=== PATIENT | male | born 1970 | race Caucasian/White ===

== ENCOUNTER 2016-07-30 00:26 | Inpatient (IN) | payer OTHER ==
[~2016-07-30] VITALS: Ht 185.4 cm; Wt 153.5 kg
[2016-07-30] VITALS (12 sets, daily range): BP systolic 125–188; BP diastolic 62–101; PULSE 73–102; RESP 16–22; TEMP 96.2–98.1; O2SAT 95–100
[~2016-07-30 00:26] MED LIST: LISI-363 PO
[2016-07-30] MEDS ORDERED: LISI-515 PO (01:23)
[2016-07-30] MEDS ORDERED: SODIUM CHLOR 0.9% 1000 ML INJ 1,000 ML IV SCH (01:48)
[2016-07-30] MEDS ORDERED: HYDROmorphone HCL PF 1 MG/ML VIAL IV PUSH ONE ×3 (02:00→07:15)
[2016-07-30] MEDS ORDERED: SODIUM CHLORIDE 0.9% FLUSH 5 ML FLUSH IVF PRN ×2 (02:00→04:15)
[2016-07-30] MEDS ORDERED: ONDANSETRON HCL 4 MG/2 ML VIAL IVP ONE (02:00)
[2016-07-30 02:06] LABS: BLOOD, URINE TRACE (NEG); GLUCOSE,URINE NEG (NEG); KETONE, URINE NEG (NEG); NITRITE,URINE NEG (NEG); PH, URINE 5.5 (5.0-8.5)
[2016-07-30 02:06] LABS: AUTOMATED NEUTROPHIL # 5.4 TH/MM3 (1.8-7.7); BASOPHIL # 0.1 TH/MM3 (0-0.2); BASOPHIL % 0.9 % (0.0-2.0); EOSINOPHIL % 0.4 % (0.0-4.0); HEMATOCRIT 38.7 % (39.0-51.0); HEMO FLAGS DIFF FINAL; LYMPH % 26.4 % (9.0-44.0); LYMPHOCYTE # 2.1 TH/MM3 (1.0-4.8); MEAN CELL VOLUME 99.6 FL (80.0-100.0); MEAN CORPUSCULAR HEMOGLOBIN 34.8 PG (27.0-34.0); MEAN CORPUSCULAR HGB CONC 34.9 % (32.0-36.0); MONO % 4.8 % (0.0-8.0); NEUT % 67.5 % (16.0-70.0); PLATELET COUNT 143 TH/MM3 (150-450); RED BLOOD COUNT 3.88 MIL/MM3 (4.50-5.90); RED CELL DISTRIBUTION WIDTH 13.2 % (11.6-17.2)
[2016-07-30 02:17] LABS: URINE COLOR YELLOW (YELLW/STRAW)
[2016-07-30 02:18] LABS: MUCUS URINE OCC /lpf (OCC)
[2016-07-30 02:19] LABS: RBC, URINE 0-3 /hpf (0-3); SQUAMOUS EPITHELIAL CELL URINE 0-5 /hpf (0-5)
[2016-07-30 02:19] LABS: CHLORIDE 106 MEQ/L (98-107); POTASSIUM 4.7 MEQ/L (3.5-5.1); SODIUM (NA) 140 MEQ/L (136-145)
[2016-07-30 02:20] LABS: COMMENT (UR) CULT NOT INDICATED; CULTURE IF INDICATED CULT NOT INDICATED
[2016-07-30 02:23] LABS: ANION GAP 14 MEQ/L (5-15); BICARBONATE 19.7 MEQ/L (21.0-32.0); BLOOD UREA NITROGEN 23 MG/DL (7-18)
[2016-07-30 02:26] LABS: ALT (GPT) 55 U/L (12-78); AST (GOT) 55 U/L (15-37); GLOMERULAR FILTRATION RATE 34 ML/MIN (>89)
[2016-07-30 02:27] LABS: TOTAL BILIRUBIN ADULT 0.5 MG/DL (0.2-1.0)
[2016-07-30 02:29] LABS: ALKALINE PHOSPHATASE 86 U/L (45-117)
--- NOTE | 2016-07-30 02:31 | RADHPO ---
EXAM DATE/TIME: 07/30/2016 02:18 [facility] COMPARISON: CHEST SINGLE AP, January 14, 2016, 11:48. INDICATIONS : Chest and abdominal pain. MEDICAL HISTORY : None. SURGICAL HISTORY : None. ENCOUNTER: Initial ACUITY: 1 day PAIN SCORE: 10/10 LOCATION: Right lower chest FINDINGS: A single view of the chest demonstrates the lungs to be symmetrically aerated without evidence of mas s, infiltrate or effusion. The cardiomediastinal contours are unremarkable. Osseous structures are intact.CONCLUSION: No acute disease. Bakari Manzano MD on July 30, 2016 at 2:29 Board Certified Radiologist. This report was verified electronically.
[2016-07-30] MEDS ORDERED: ONDANSETRON HCL 4 MG/2 ML VIAL IV PUSH ONE (03:45)
--- NOTE | 2016-07-30 03:52 | RADHPO ---
EXAM DATE/TIME: 07/30/2016 03:06 [facility] COMPARISON: CT ABDOMEN & PELVIS W/O CONTRAST, August 25, 2014, 20:28. INDICATIONS : Right upper quadrant pain. ORAL CONTRAST: No oral contrast ingested. RADIATION DOSE: 22.40 CTDIvol (mGy) MEDICAL HISTORY : Pancreatitis. Hypertension. Born with one kidney SURGICAL HISTORY : Appendectomy. ENCOUNTER: Initial ACUITY: 1 day PAIN SCALE: 7/10 LOCATION: Right upper quadrant TECHNIQUE: Volumetric scanning of the abdomen and pelvis was performed. Using automated exposure control and ad justment of the mA and/or kV according to patient size, radiation dose was kept as low as reasonably achievable to obtain optimal diagnostic quality images. FINDINGS: LOWER LUNGS: The visualized lower lungs are clear. LIVER: Homogeneous density without lesion. There is no dilation of the biliary tree. No calcified gallston es. SPLEEN: Normal size without lesion. PANCREAS: Within normal limits. KIDNEYS: There is absence of the left kidney. The right kidney appears normal. ADRENAL GLANDS: Within normal limits. VASCULAR: There is no aortic aneurysm. BOWEL/MESENTERY: The stomach, small bowel, and colon demonstrate no acute abnormality. There is no free intraperitone al air or fluid. ABDOMINAL WALL: Within normal limits. RETROPERITONEUM: There is no lymphadenopathy. BLADDER: No wall thickening or mass. REPRODUCTIVE: Within normal limits. INGUINAL: There is no lymphadenopathy or hernia. MUSCULOSKELETAL: Within normal limits for patient age. CONCLUSION: No acute disease. Bakari Manzano MD on July 30, 2016 at 3:49 Board Certified Radiologist. This report was verified electronically.
[2016-07-30] MEDS ORDERED: SODIUM CHLOR 0.9% 1000 ML INJ 1,000 ML IV ONE (04:15)
[2016-07-30] MEDS ORDERED: MORPHINE SULFATE 4 MG/ML INJ IV PUSH ONE (04:15)
[2016-07-30] MEDS: SODIUM CHLOR 0.9% 1000 ML INJ 1,000 ML IV SCH ×2 (06:15→11:54)
[2016-07-30] MEDS ORDERED: SODIUM CHLORIDE 0.9% FLUSH 5 ML FLUSH IV PRN (06:15)
[2016-07-30] MEDS ORDERED: ONDANSETRON HCL 4 MG/2 ML VIAL IV PUSH PRN (06:15)
--- NOTE | 2016-07-30 06:17 | PD ---
HPI Chief Complaint: Abdominal Pain Time Seen by Provider: 01:48 Travel History International Travel<30 days: No Contact w/Intl Traveler<30days: No Traveled to known affect area: No History of Present Illness HPI 46-year-old male presents to the emergency department for one week of progressively worsening upper abdominal pain. Prior history of pancreatitis admits to alcohol use denies history of gallstones or biliary colic. No history of gastritis or peptic ulcer disease. Patient is currently taking no medications. Patient states pain does not remind him of his prior episodes of pancreatitis. Patient rates his pain 7/10 in intensity. Eating seems to exacerbate symptoms nothing seems to provide any relief. No hematemesis no coffee-ground emesis no melena no hematochezia. No chest pain no shortness of breath. No dysuria frequency or urgency or flank pain. No injury or fall. PFSH Past Medical History Narrative Medical Arthritis pancreatitis one kidney hypertension hypertriglyceridemia alcoholism nursing notes reviewed Hx Anticoagulant Therapy: No Arthritis: Yes (LEFT FOOT) Asthma: No Autoimmune Disease: No Blood Disorders: No Anxiety: No Depression: No Heart Rhythm Problems: No Cancer: No Cardiovascular Problems: Yes High Cholesterol: No Chemotherapy: No Chest Pain: No Congestive Heart Failure: No COPD: No Cerebrovascular Accident: No Diabetes: No Diminished Hearing: No Endocrine: Yes Gastrointestinal Disorders: Yes GERD: No Genitourinary: Yes ("BORN WITH ONE KIDNEY, HAVE FSGS") Hiatal Hernia: No Hypertension: Yes Immune Disorder: No Implanted Vascular Access Dvce: No Kidney Stones: No Musculoskeletal: Yes Neurologic: Yes (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) Psychiatric: No Reproductive: No Respiratory: No Immunizations Current: Yes Migraines: No Pancreatitis: Yes Radiation Therapy: No Renal Failure: Yes (CKD, has one RIGHT SIDED kidney "FSGS") Seizures: No Sickle Cell Disease: No Sleep Apnea: No Thyroid Disease: No Ulcer: No PNEUMOCCOCAL Vaccine (Year): 2 Past Surgical History Abdominal Surgery: Yes AICD: No Appendectomy: Yes Arteriovenous Shunt: No Body Medical Devices: PIN IN HIP Cardiac Surgery: No Ear Surgery: No Endocrine Surgery: No Eye Surgery: No Genitourinary Surgery: No Gynecologic Surgery: No Hysterectomy: No Insulin Pump: No Joint Replacement: Yes Oral Surgery: Yes ("SALIVA GLAND REMOVED") Pacemaker: No Thoracic Surgery: No Other Surgery: Yes Social History Alcohol Use: Yes (750 ML VODKA DAILY) Tobacco Use: Yes (QUIT: 04/2015) Substance Use: No Allergies-Medications (Allergen,Severity, Reaction): Coded Allergies: No Known Allergies (Verified , 07/30/16) Reported Meds & Prescriptions Reported Meds & Active Scripts Active Reported Lisinopril 20 Mg Tab 20 Mg PO DAILY Review of Systems Except as stated in HPI: all other systems reviewed are Neg General / Constitutional: No: Fever, Chills HENT: No: Congestion Cardiovascular: No: Chest Pain or Discomfort Respiratory: No: Shortness of Breath Gastrointestinal: Positive: Nausea, Abdominal Pain Genitourinary: No: Flank Pain Musculoskeletal: No: Pain Skin: No Rash Neurologic: No: Weakness Psychiatric: Positive: Anxiety Hematologic/Lymphatic: No: Lymph Node Enlargement Physical Exam Narrative GENERAL: SKIN: Warm a well-developed well-developed well-nourished obese male in no acute distress no respiratory distress nd dry. HEAD: Normocephalic. EYES: No scleral icterus. No injection or drainage. NECK: Supple, trachea midline. No JVD or lymphadenopathy. CARDIOVASCULAR: Regular rate and rhythm without murmurs, gallops, or rubs. RESPIRATORY: Breath sounds equal bilaterally. No accessory muscle use. GASTROINTESTINAL: Abdomen soft, reproducible right upper quadrant and periumbilical tenderness to direct palpation without guarding or rebound, nondistended. MUSCULOSKELETAL: No cyanosis, or edema. BACK: Nontender without obvious deformity. No CVA tenderness. Data Data Last Documented VS Vital Signs Date Time Temp Pulse Resp B/P Pulse Ox O2 Delivery O2 Flow Rate FiO2 07/30/16 04:00 86 18 129/62 95 Room Air 07/30/16 00:51 98.1 Orders Complete Blood Count With Diff (07/30/16 01:48) Comprehensive Metabolic Panel (07/30/16 01:48) Lipase (07/30/16 01:48) Urinalysis - C+S If Indicated (07/30/16 01:48) Iv Access Insert/Monitor (07/30/16 01:48) Ecg Monitoring (07/30/16 01:48) Oximetry (07/30/16 01:48) Ondansetron Inj (Zofran Inj) (07/30/16 02:00) Sodium Chlor 0.9% 1000 Ml Inj (Ns 1000 M (07/30/16 01:48) Chest, Single Ap (07/30/16 01:48) Hydromorphone Pf Inj (Dilaudid Pf Inj) (07/30/16 02:00) Ct Abd/Pel W/O Iv Contrast (07/30/16 01:48) Hydromorphone Pf Inj (Dilaudid Pf Inj) (07/30/16 03:45) Ondansetron Inj (Zofran Inj) (07/30/16 03:45) Sodium Chlor 0.9% 1000 Ml Inj (Ns 1000 M (07/30/16 04:15) Morphine Inj (Morphine Inj) (07/30/16 04:15) Admit Order (Ed Use Only) (07/30/16 ) ^ Saline Lock (07/30/16 04:14) Resp Oxygen Darren C Titrat 1-4 L (07/30/16 ) ^ Notify Dr: Other (07/30/16 04:14) Sodium Chloride 0.9% Flush (Ns Flush) (07/30/16 09:00) Sodium Chloride 0.9% Flush (Ns Flush) (07/30/16 04:15) Alcohol (Ethanol) (07/30/16 01:40) Labs Laboratory Tests Test 07/30/16 07/30/16 01:35 01:40 Urine Color YELLOW Urine Turbidity CLEAR Urine pH 5.5 Urine Specific [place] 1.016 Urine Protein 100 mg/dL Urine Glucose (UA) NEG mg/dL Urine Ketones NEG mg/dL Urine Occult Blood TRACE Urine Nitrite NEG Urine Bilirubin NEG Urine Leukocyte Esterase NEG Urine RBC 0-3 /hpf Urine Squamous Epithelial 0-5 /hpf Cells Urine Hyaline Casts 3-5 /lpf Urine Fine Granular Casts 0-2 /lpf Urine Mucus OCC /lpf Microscopic Urinalysis Comment CULT NOT INDICATED White Blood Count 8.0 TH/MM3 Red Blood Count 3.88 MIL/MM3 Hemoglobin 13.5 GM/DL Hematocrit 38.7 % Mean Corpuscular Volume 99.6 FL Mean Corpuscular Hemoglobin 34.8 PG Mean Corpuscular Hemoglobin 34.9 % Concent Red Cell Distribution Width 13.2 % Platelet Count 143 TH/MM3 Mean Platelet Volume 8.0 FL Neutrophils (%) (Auto) 67.5 % Lymphocytes (%) (Auto) 26.4 % Monocytes (%) (Auto) 4.8 % Eosinophils (%) (Auto) 0.4 % Basophils (%) (Auto) 0.9 % Neutrophils # (Auto) 5.4 TH/MM3 Lymphocytes # (Auto) 2.1 TH/MM3 Monocytes # (Auto) 0.4 TH/MM3 Eosinophils # (Auto) 0.0 TH/MM3 Basophils # (Auto) 0.1 TH/MM3 CBC Comment DIFF FINAL Differential Comment Sodium Level 140 MEQ/L Potassium Level 4.7 MEQ/L Chloride Level 106 MEQ/L Carbon Dioxide Level 19.7 MEQ/L Anion Gap 14 MEQ/L Blood Urea Nitrogen 23 MG/DL Creatinine 2.10 MG/DL Estimat Glomerular Filtration 34 ML/MIN Rate Random Glucose 173 MG/DL Calcium Level 8.7 MG/DL Total Bilirubin 0.5 MG/DL Aspartate Amino Transf 55 U/L (AST/SGOT) Alanine Aminotransferase 55 U/L (ALT/SGPT) Alkaline Phosphatase 86 U/L Total Protein 8.0 GM/DL Albumin 3.5 GM/DL Lipase 488 U/L Ethyl Alcohol Level 98 MG/DL [facility] Medical Decision Making Medical Screen Exam Complete: Yes Emergency Medical Condition: Yes Medical Record Reviewed: Yes Interpretation(s) Alcohol: 98 lipase: 448, elevated Last Impressions Chest X-Ray 07/30/16147 Signed Impressions: Service Date/Time: Saturday, July 30, 2016 02:18 - CONCLUSION: No acute disease. Bakari Manzano MD Abdomen/Pelvis CT 07/30/16147 Signed Impressions: Service Date/Time: Saturday, July 30, 2016 03:06 - CONCLUSION: No acute disease. Bakari Manzano MD CBC & BMP Diagram 07/30/16 01:40 Vital Signs Date Time Temp Pulse Resp B/P Pulse Ox O2 Delivery O2 Flow Rate FiO2 07/30/16 04:00 86 18 129/62 95 Room Air 07/30/16 03:35 76 18 137/68 97 Room Air 07/30/16 00:51 98.1 85 22 125/87 96 Differential Diagnosis Abdominal pain cholecystitis biliary colic choledocholithiasis pancreatitis gastritis peptic ulcer disease Narrative Course IV access obtained specimens collected and sent for resulting imaging studies ordered patient administered Dilaudid 1 mg IV along with Zofran Patient administered IV fluid bolus repeat of Dilaudid 1 mg IV and Zofran Additional IV fluids administered case discussed with on-call medicine physician requests serum alcohol Patient will be admitted for observation status; no findings to support alcohol withdrawal this time no tachycardia no hypertension no agitation Physician Communication Physician Communication Case discussed with Dr. Estrada will admit to observation Diagnosis Primary Impression: Chronic pancreatitis Qualified Code: K86.0 - Alcohol-induced chronic pancreatitis Additional Impressions: Biliary colic Alcohol abuse Admitting Information Admitting Physician Requests: Observation Princess Sommer MD Jul 30, 2016 06:17
[2016-07-30] MEDS ORDERED: LORazepam 2 MG/ML VIAL IV PUSH ONE ×2 (06:30→07:15)
--- NOTE | 2016-07-30 06:32 | HHI.HP ---
HPI Service [facility] Primary Care Physician Pradip Mishra MD Admission Diagnosis Pancreatitis; biliary colic Chief Complaint: ABD PAIN, NAUSEA Travel History International Travel<30 Days: No Contact w/Intl Traveler <30 Da: No Traveled to Known Affected Are: No History of Present Illness 46-year-old male with chronic alcoholism presents with right upper quadrant and epigastric pain ongoing for the last 6-7 days. Denies any trauma to the area. No fevers or chills. He has been nauseated. No diarrhea. No foreign travel or unusual foods. He does admit to drinking about 750 mL of vodka every day. He reports that he had 1 episode of pancreatitis approximately 2 years ago which was associated with alcohol use as well. He notes that he went through some relatively significant withdrawal at that time and was self alcohol for approximately 1-1/2 years. 10 months ago he started drinking alcohol again and I had significant pain from alcoholic neuropathy in his feet. He states that when he drinks alcohol makes his feet feel numb and he doesn't feel the pain. He knows that alcohol use is deleterious to his health and will likely be the cause of his ultimately. He is hoping that medical marijuana will soon be available as reportedly this helps his neuropathy and keeps him from drinking alcohol. On my exam he still complains of some right upper quadrant pain which radiates around his right side. His nausea has subsided. He denies any tremors or feeling of withdrawal but is afraid if he remains off the alcohol he will indeed withdrawal again. He desires discharge home as soon as he is feeling better. He freely admits that he will likely go consume more alcohol to avoid any withdrawal. We have discussed the long-term ramifications of such cycle and the likely poor outcome. He voiced understanding but nonetheless expressed his desire to continue with his plan. He denies depression and specifically denies any suicidal or homicidal ideation. Lab work noted for slightly elevated creatinine of 2.1 and mildly elevated lipase and transaminase. Blood alcohol level is 98. Review of Systems Constitutional: COMPLAINS OF: Change in appetite Endocrine: DENIES: Heat/cold intolerance, Polydipsia, Polyuria, Polyphagia Eyes: DENIES: Blurred vision, Diplopia, Eye inflammation, Eye pain, Vision loss , Photosensitivity, Double Vision Ears, nose, mouth, throat: DENIES: Tinnitus, Hearing loss, Vertigo, Nasal discharge, Oral lesions, Throat pain, Hoarseness, Ear Pain, Running Nose, Epistaxis, Sinus Pain, Toothache, Odynophagia Respiratory: DENIES: Apneas, Cough, Snoring, Wheezing, Hemoptysis, Sputum production, Shortness of breath Cardiovascular: DENIES: Chest pain, Palpitations, Syncope, Dyspnea on Exertion , PND, Lower Extremity Edema, Orthopnea, Claudication Gastrointestinal: COMPLAINS OF: Abdominal pain, GERD, Nausea Musculoskeletal: COMPLAINS OF: Joint pain Hematologic/lymphatic: DENIES: Bruising, Lymphadenopathy Immunologic/allergic: DENIES: Eczema, Urticaria Neurologic: COMPLAINS OF: Paresthesias, DENIES: Abnormal gait, Headache, Localized weakness, Seizures, Speech Problems, Tremor, Poor Balance Psychiatric: DENIES: Anxiety, Confusion, Mood changes, Depression, Hallucinations, Agitation, Suicidal Ideation, Homicidal Ideation, Delusions, History of Bipolar, History of Schizophrenia Past Family Social History Past Medical History Alcoholism Morbid obesity Hypertension Hypertriglyceridemia Type 2 diabetes Past Surgical History Left hip and knee surgery at age 14 Appendectomy as a youth Salivary gland surgery as a youth Reported Medications Lisinopril 20 mg daily Allergies: Coded Allergies: No Known Allergies (Verified , 07/30/16) Family History Noncontributory Social History No tobacco in 2 years prior to that smoked "a few" cigarettes intermittently over the years but never a regular smoker Drinks 1-1 1/2 pints of vodka per day. 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 Alert and oriented. Cooperative with exam. SKIN: No rashes, ecchymoses or lesions. Slightly clammy. HEAD: Atraumatic. Normocephalic. No temporal or scalp tenderness. EYES: Pupils equal round and reactive. Extraocular motions intact. No scleral icterus. No injection or drainage. ENT: Nose without bleeding, purulent drainage or septal hematoma. Airway patent. NECK: Trachea midline. No JVD or lymphadenopathy. Supple, nontender, no meningeal signs. CARDIOVASCULAR: Regular rate and rhythm without murmurs, gallops, or rubs. RESPIRATORY: Clear to auscultation. Breath sounds equal bilaterally. No wheezes , rales, or rhonchi. GASTROINTESTINAL: Abdomen soft, nondistended. No palpable masses. Positive tenderness to palpation in right upper quadrant with positive Andrade sign. No rebound tenderness. Bowel sounds normal. MUSCULOSKELETAL: Extremities without clubbing, cyanosis, or edema. No joint tenderness, effusion, or edema noted. No calf tenderness. NEUROLOGICAL: Awake and alert. Cranial nerves II through XII intact. Motor and sensory grossly within normal limits. Five out of 5 muscle strength in all muscle groups. Normal speech. Laboratory Laboratory Tests Test 07/30/16 07/30/16 01:35 01:40 Urine Color YELLOW Urine Turbidity CLEAR Urine pH 5.5 Urine Specific [place] 1.016 Urine Protein 100 Urine Glucose (UA) NEG Urine Ketones NEG Urine Occult Blood TRACE Urine Nitrite NEG Urine Bilirubin NEG Urine Leukocyte Esterase NEG Urine RBC 0-3 Urine Squamous Epithelial 0-5 Cells Urine Hyaline Casts 3-5 Urine Fine Granular Casts 0-2 Urine Mucus OCC Microscopic Urinalysis Comment CULT NOT INDICATED White Blood Count 8.0 Red Blood Count 3.88 Hemoglobin 13.5 Hematocrit 38.7 Mean Corpuscular Volume 99.6 Mean Corpuscular Hemoglobin 34.8 Mean Corpuscular Hemoglobin 34.9 Concent Red Cell Distribution Width 13.2 Platelet Count 143 Mean Platelet Volume 8.0 Neutrophils (%) (Auto) 67.5 Lymphocytes (%) (Auto) 26.4 Monocytes (%) (Auto) 4.8 Eosinophils (%) (Auto) 0.4 Basophils (%) (Auto) 0.9 Neutrophils # (Auto) 5.4 Lymphocytes # (Auto) 2.1 Monocytes # (Auto) 0.4 Eosinophils # (Auto) 0.0 Basophils # (Auto) 0.1 CBC Comment DIFF FINAL Differential Comment Sodium Level 140 Potassium Level 4.7 Chloride Level 106 Carbon Dioxide Level 19.7 Anion Gap 14 Blood Urea Nitrogen 23 Creatinine 2.10 Estimat Glomerular Filtration 34 Rate Random Glucose 173 Calcium Level 8.7 Total Bilirubin 0.5 Aspartate Amino Transf 55 (AST/SGOT) Alanine Aminotransferase 55 (ALT/SGPT) Alkaline Phosphatase 86 Total Protein 8.0 Albumin 3.5 Lipase 488 Ethyl Alcohol Level 98 Result Diagram: 07/30/1613907/30/16139 Imaging Last 72 hours Impressions Chest X-Ray 07/30/16147 Signed Impressions: Service Date/Time: Saturday, July 30, 2016 02:18 - CONCLUSION: No acute disease. Bakari Manzano MD Abdomen/Pelvis CT 07/30/16147 Signed Impressions: Service Date/Time: Saturday, July 30, 2016 03:06 - CONCLUSION: No acute disease. Bakari Manzano MD Assessment and Plan Problem List: (1) Pancreatitis, alcoholic, acute Status: Acute Plan: We'll provide IV fluids and pain medication. Monitor clinically. CT scan noted. (2) Alcoholism Status: Chronic Plan: Has had significant withdrawal in the past and does not want to go through this again. His main goal as stated by him is to get through this pain and get back out of the hospital. He freely admits that he will likely resume alcohol intake at discharge although he knows this is deleterious to his health. We'll provide Librium scheduled and use Ativan. Monitor closely for alcohol withdrawal. I have encouraged the patient to refrain from alcohol use and to get help through mental health. He declines such at this point. He is clearly not desirous of stopping alcohol use at this point. (3) HTN (hypertension) Status: Chronic Plan: He takes lisinopril at home. We'll hold medication at this point as BP is fine. (4) Type 2 diabetes mellitus Status: Chronic Plan: Reportedly not taking any medication for this. Will follow sugars and provide sliding scale insulin as needed. (5) Acute kidney injury (nontraumatic) Status: Acute Plan: Had been around 2.1 which is above his baseline value of around 1.2-1.3. We'll provide IV fluids. Monitor output. Recheck labs. Code Status Full Discussed Condition With Patient and Dr. Sommer Problem Qualifiers (1) Pancreatitis, alcoholic, acute: Qualified Code: K85.20 - Alcohol-induced acute pancreatitis without infection or necrosis (2) HTN (hypertension): Qualified Code: I10 - Essential hypertension Harman Estrada PhD, MD Jul 30, 2016 06:31
[2016-07-30] MEDS: INSULIN ASPART SUPPLEMENTAL SCALE SQ SCH ×4 (07:00→20:32)
[2016-07-30] MEDS ORDERED: METOCLOPRAMIDE HCL 10 MG/2 ML VIAL IV PUSH ONE (07:15)
[2016-07-30] MEDS: SODIUM CHLORIDE 0.9% FLUSH 5 ML FLUSH IV SCH ×2 (07:31→20:05)
[2016-07-30] MEDS ORDERED: chlordiazePOXIDE 25 MG CAP PO SCH (09:00)
[2016-07-30] MEDS ORDERED: SODIUM CHLORIDE 0.9% FLUSH 5 ML FLUSH IVF SCH (09:00)
--- NOTE | 2016-07-30 09:16 | RADHPO ---
EXAM DATE/TIME: 07/30/2016 08:28 [facility] COMPARISON: CT ABDOMEN & PELVIS W/O CONTRAST, July 30, 2016, 3:06. INDICATIONS : Right upper quadrant pain. MEDICAL HISTORY : Gastroesophageal reflux disease. ETOH abuse. Neuropathy. Hypertension. Pancreatitis. FSGS kidney disease. Renal Failure. Liver disease. Diabetes. SURGICAL HISTORY : Appendectomy. Saliva gland removal. Left foot surgery. Left knee arthroscopy. Left hip surgery. ENCOUNTER: Initial ACUITY: 1 day PAIN SCORE: 5/10 LOCATION: Right upper quadrant MEASUREMENTS: LIVER: 20.4 cm length COMMON DUCT: 4 mm RIGHT KIDNEY: 14.5 x 6.4 x 8.1 cm FINDINGS: LIVER: Hepatomegaly with increased echogenicity consistent with fatty metamorphosis.. COMMON DUCT: No intraluminal mass or stone visualized. GALLBLADDER: Contains no stones, demonstrates no wall thickening or pericholecystic fluid. PANCREAS: The visualized portions are within normal limits. RIGHT KIDNEY: No evidence of hydronephrosis, stone, or mass. CONCLUSION: Hepatomegaly with fatty metamorphosis of the liver Nirav Bruce MD on July 30, 2016 at 9:13 Board Certified Radiologist. This report was verified electronically.
[2016-07-30] MEDS: MORPHINE SULFATE 8 MG/ML INJ IV PUSH PRN ×5 (09:18→23:41)
[2016-07-30] MEDS: LORazepam 2 MG/ML VIAL IV PUSH PRN ×3 (11:55→21:36)
[2016-07-30] MEDS: chlordiazePOXIDE 25 MG CAP PO SCH (19:25)
[2016-07-30] MEDS: LABETALOL HCL 100 MG TAB PO SCH (20:27)
[2016-07-31] VITALS: BP 142/94; PULSE 70; RESP 23; TEMP 97.7; O2SAT 98
[2016-07-31] MEDS: LORazepam 2 MG/ML VIAL IV PUSH PRN ×4 (01:21→18:45)
[2016-07-31] MEDS: SODIUM CHLOR 0.9% 1000 ML INJ 1,000 ML IV SCH ×3 (02:08→17:16)
[2016-07-31] MEDS: MORPHINE SULFATE 8 MG/ML INJ IV PUSH PRN ×4 (03:58→21:51)
[2016-07-31] MEDS: INSULIN ASPART SUPPLEMENTAL SCALE SQ SCH ×4 (06:04→21:00)
[2016-07-31 06:53] LABS: CHLORIDE 106 MEQ/L (98-107); SODIUM (NA) 142 MEQ/L (136-145)
[2016-07-31 07:03] LABS: ALT (GPT) 41 U/L (12-78); ANION GAP 12 MEQ/L (5-15); AST (GOT) 52 U/L (15-37); BLOOD UREA NITROGEN 20 MG/DL (7-18); GLOMERULAR FILTRATION RATE 47 ML/MIN (>89)
[2016-07-31 07:17] LABS: ALKALINE PHOSPHATASE 62 U/L (45-117)
[2016-07-31] MEDS ORDERED: FLUMAZENIL 0.5 MG/5 ML VIAL IV PUSH PRN (07:30)
[2016-07-31] MEDS ORDERED: LORazepam 2 MG TAB PO PRN (07:30)
[2016-07-31] MEDS ORDERED: LORazepam 1 MG TAB PO PRN (07:30)
[2016-07-31] MEDS ORDERED: SODIUM CHLORIDE 0.9% FLUSH 5 ML FLUSH IV FLUSH PRN (07:30)
[2016-07-31] MEDS ORDERED: LORazepam 2 MG/ML VIAL IV PUSH PRN ×3 (07:30)
--- NOTE | 2016-07-31 07:40 | HHI.PR ---
Subjective Remarks Still complaining of right upper quadrant and epigastric pain. Has tolerated clear liquids well. He is starting to have somewhat of a tremor and is fearful that he may go through withdrawal again. Objective Vitals Vital Signs Date Time Temp Pulse Resp B/P Pulse Ox O2 Delivery O2 Flow Rate FiO2 07/31/16 04:14 20 07/31/16 00:00 97.7 70 23 142/94 98 07/30/16 20:00 97.8 73 21 126/89 98 07/30/16 16:00 97.6 75 20 141/92 97 07/30/16 12:00 96.2 81 20 151/93 98 07/30/16 08:30 96.2 100 20 143/101 95 07/30/16 08:00 99 21 07/30/16 07/30/16 07/31/16 15:00 23:00 07:00 Intake Total 750 ml 1040 ml 1040 ml Balance 750 ml 1040 ml 1040 ml Intake Oral 750 ml 240 ml 240 ml IV Total 800 ml 800 ml # Voids 4 2 2 # Bowel Movements 0 0 0 GENERAL: Morbidly obese, slightly anxious, alert and oriented and cooperative with exam. SKIN: Slightly clammy. HEAD: Normocephalic. Extraocular motions intact. Pupils are equal round and reactive. EYES: No scleral icterus. No injection or drainage. NECK: Supple, trachea midline. No JVD or lymphadenopathy. CARDIOVASCULAR: Regular rate and rhythm without murmurs, gallops, or rubs. RESPIRATORY: Breath sounds equal bilaterally. No accessory muscle use. GASTROINTESTINAL: Abdomen soft, nondistended. Mild to moderate tenderness to palpation in right upper quadrant. Positive voluntary guarding. Bowel sounds normal. MUSCULOSKELETAL: No cyanosis, or edema. BACK: Nontender without obvious deformity. No CVA tenderness. NEURO: Slight tremor of his hands. Otherwise no focal abnormalities or deficits. Result Diagram: 07/30/16 01407/31/16 0608 Imaging Last 72 hours Impressions Chest X-Ray 07/30/16147 Signed Impressions: Service Date/Time: Saturday, July 30, 2016 02:18 - CONCLUSION: No acute disease. Bakari Manzano MD Abdomen/Pelvis CT 07/30/16147 Signed Impressions: Service Date/Time: Saturday, July 30, 2016 03:06 - CONCLUSION: No acute disease. Bakari Manzano MD Urinary Catheter: No Vascular Central Line Catheter: No A/P Problem List: (1) Pancreatitis, alcoholic, acute Status: Acute Plan: We'll continue IV fluids and pain medication. Monitor clinically. CT scan and ultrasound noted. Advance diet as tolerated. Lipase is improved but patient still with notable right upper quadrant pain. (2) Alcoholism Status: Chronic Plan: Has had significant withdrawal in the past and does not want to go through this again. His main goal as stated by him is to get through this pain and get back out of the hospital. He freely admits that he will likely resume alcohol intake at discharge although he knows this is deleterious to his health. Appears that he may be having mild withdrawal symptoms presently. Continue withdrawal protocol and I have activated withdrawal protocol medications. I have encouraged the patient to refrain from alcohol use and to get help through mental health. He declines such at this point. He is clearly not desirous of stopping alcohol use at this point. (3) HTN (hypertension) Status: Chronic Plan: He takes lisinopril at home. Will hold medication for now as his potassium is climbing a bit. (4) Type 2 diabetes mellitus Status: Chronic Plan: Reportedly not taking any medication for this. Will follow sugars and provide sliding scale insulin as needed. Advised weight loss. (5) Acute kidney injury (nontraumatic) Status: Acute Plan: Admission creatinine around 2.1 which is above his baseline value of around 1.2-1.3. GFR improving with IV fluids. We'll continue IV fluids. Monitor output. Discharge Planning Hopefully discharge in 1-2 days. My hopes are that we can keep him from full- blown withdrawal, however this may be unavoidable. Would've set him home today had he not had significant right upper quadrant pain still. Problem Qualifiers (1) Pancreatitis, alcoholic, acute: Qualified Code: K85.20 - Alcohol-induced acute pancreatitis without infection or necrosis (2) HTN (hypertension): Qualified Code: I10 - Essential hypertension Harman Estrada PhD MD Jul 31, 2016 07:40
[2016-07-31 08:00] VITALS: BP 136/94; PULSE 79; RESP 18; TEMP 98; O2SAT 94
[2016-07-31 08:38] VITALS: O2SAT 96
[2016-07-31] MEDS ORDERED: MULTIVITAMINS/MINERALS THERAPEUTIC TAB PO SCH (09:00)
[2016-07-31] MEDS: SODIUM CHLORIDE 0.9% FLUSH 5 ML FLUSH IV FLUSH SCH ×2 (09:13→21:00)
[2016-07-31] MEDS: LABETALOL HCL 100 MG TAB PO SCH ×2 (09:13→21:50)
[2016-07-31] MEDS: chlordiazePOXIDE 25 MG CAP PO SCH ×3 (09:13→17:16)
[2016-07-31 12:00] VITALS: BP 138/90; PULSE 80; RESP 18; TEMP 98; O2SAT 97
[2016-07-31 16:00] VITALS: BP 133/89; PULSE 77; RESP 19; TEMP 97.8; O2SAT 95
[2016-07-31 20:00] VITALS: BP 133/89; PULSE 82; RESP 20; TEMP 98.7; O2SAT 96
--- NOTE | 2016-08-01 08:50 | PD.AMA ---
Against Medical Advice Note Diagnosis: (1) Alcohol abuse (2) Pancreatitis, alcoholic, acute (3) Type 2 diabetes mellitus Discharge Disposition: Against Medical Advice Recommended Treatment Course Was recommended that he stay in hospital until symptoms resolved and no withdrawal evident. He was instructed to enroll in alcohol detox/cessation program, but he was not interested in such. I sent a message to his PCP, Dr Mishra re: his leaving AMA. AMA Statement Patient Jose Espana has decided to leave the hospital against medical advice. He had actually already left the hospital reportedly late before my AM rounds 08/01/16. This patient had the capacity to refuse care and was explained the risks of leaving, including permanent disability and/or . The patient has been informed that he may return for care at any time, and follow up has been arranged/advised. Harman Estrada PhD MD Aug 01, 2016 08:49
== END 2016-07-31 23:45 | disposition left against medical advice (07) | DRG 439 ==
LOC: PHED 00:26 → PHEDA 04:16 → PH3A 07:49 → OBSVTOIN 07-31 07:35
PROVIDERS: ADMIT Family Medicine; ATTEND Family Medicine
DX: K85.20 Alcohol induced acute pancreatitis without necrosis or infection (principal); N17.9 Acute kidney failure, unspecified; Q60.0 Renal agenesis, unilateral; Z68.41 Body mass index [BMI] 40.0-44.9, adult; G62.1 Alcoholic polyneuropathy; E66.01 Morbid (severe) obesity due to excess calories; F10.20 Alcohol dependence, uncomplicated; Y90.4 Blood alcohol level of 80-99 mg/100 ml; I10 Essential (primary) hypertension; E11.9 Type 2 diabetes mellitus without complications; E78.1 Pure hyperglyceridemia
CPT/HCPCS: 71010; 74176; 76705; 80053; 80074; 80320; 81001; 82948; 83690; 85025; 96361; 96374; 96375; 96376; G0378; J1170; J1815; J2060; J2270; J2405; J7030

== ENCOUNTER 2016-08-05 21:59 | Emergency (ER) | payer OTHER ==
[~2016-08-05] VITALS: Ht 185.4 cm; Wt 153.0 kg
[~2016-08-05 21:59] MED LIST changes: -LISI-363 PO; +LISI-515 PO
[2016-08-05 22:04] VITALS: BP 130/61; PULSE 76; RESP 16; TEMP 98; O2SAT 96
--- NOTE | 2016-08-05 23:21 | PD ---
HPI Chief Complaint: Injury Time Seen by Provider: 23:18 Travel History International Travel<30 days: No Contact w/Intl Traveler<30days: No Traveled to known affect area: No History of Present Illness HPI 46-year-old white male presents to emergency Department with complaints of right ankle pain after tripping and falling at home prior to arrival. He states that he had heard an audible crack. Since then he has had inability to bear weight. He states that he feels it's just above his ankle. The pain is moderate to severe. He denies any other injuries. No numbness, tingling or weakness. No neck or back pain. No head injury. PFSH Past Medical History Narrative Medical Hypertension, diabetes, single kidney, pancreatitis, alcoholic neuropathy Hx Anticoagulant Therapy: No Arthritis: Yes (LEFT FOOT) Asthma: No Autoimmune Disease: No Blood Disorders: No Anxiety: No Depression: No Heart Rhythm Problems: No Cancer: No Cardiovascular Problems: Yes High Cholesterol: No Chemotherapy: No Chest Pain: No Congestive Heart Failure: No COPD: No Cerebrovascular Accident: No Diabetes: No Diminished Hearing: No Endocrine: Yes Gastrointestinal Disorders: Yes GERD: No Genitourinary: Yes ("BORN WITH ONE KIDNEY, HAVE FSGS") Hiatal Hernia: No Hypertension: Yes Immune Disorder: No Implanted Vascular Access Dvce: No Kidney Stones: No Musculoskeletal: Yes Neurologic: Yes (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) Psychiatric: No Reproductive: No Respiratory: No Immunizations Current: Yes Migraines: No Pancreatitis: Yes Radiation Therapy: No Renal Failure: Yes (CKD, has one RIGHT SIDED kidney "FSGS") Seizures: No Sickle Cell Disease: No Sleep Apnea: No Thyroid Disease: No Ulcer: No Tetanus Vaccination: < 5 Years Influenza Vaccination: Yes PNEUMOCCOCAL Vaccine (Year): 2 Past Surgical History Abdominal Surgery: Yes AICD: No Appendectomy: Yes Arteriovenous Shunt: No Body Medical Devices: PIN IN HIP Cardiac Surgery: No Ear Surgery: No Endocrine Surgery: No Eye Surgery: No Genitourinary Surgery: No Gynecologic Surgery: No Hysterectomy: No Insulin Pump: No Joint Replacement: Yes Oral Surgery: Yes ("SALIVA GLAND REMOVED") Pacemaker: No Thoracic Surgery: No Other Surgery: Yes Social History Alcohol Use: Yes (750 ML VODKA DAILY) Tobacco Use: Yes (QUIT: 04/2015) Substance Use: No Allergies-Medications (Allergen,Severity, Reaction): Coded Allergies: No Known Allergies (Verified , 08/05/16) Reported Meds & Prescriptions Reported Meds & Active Scripts Active Reported Lisinopril 20 Mg Tab 20 Mg PO DAILY Review of Systems Except as stated in HPI: all other systems reviewed are Neg Musculoskeletal: Positive: Arthralgias, Limited ROM, Edema, Pain Physical Exam Narrative GENERAL: Well-developed, well-nourished in no apparent distress. Nontoxic appearing. HEAD: Normocephalic, atraumatic. EYES: Pupils equal round and reactive. Extraocular motions intact. No scleral icterus. No injection or drainage. ENT: Nose clear. Throat without erythema, tonsillar hypertrophy or exudate. Uvula midline. Airway patent. NECK: Trachea midline. Supple, nontender, moves head freely. No central bony tenderness or spasm. CARDIOVASCULAR: Regular rate and rhythm without murmurs, gallops, or rubs. RESPIRATORY: Clear to auscultation. Breath sounds equal bilaterally. No wheezes , rales, or rhonchi. GASTROINTESTINAL: Abdomen soft, non-tender, nondistended. No hepato-splenomegaly , or palpable masses. No guarding. EXTREMITIES: No clubbing, cyanosis, patient has swelling and pain to the lateral distal third of the lower leg just above the ankle into the ankle. There is no pain in the heel, Achilles, forefoot. No pain on the medial malleolus. The skin is intact. He has intact dorsalis pedis pulse. Good Refill. No pain in the knee or hip. BACK: Nontender without deformity. No flank tenderness. NEUROLOGICAL: Awake, alert and oriented x 3 .Cranial nerves grossly intact. Motor and sensory grossly within normal limits. Normal speech. Data Data Last Documented VS Vital Signs Date Time Temp Pulse Resp B/P Pulse Ox O2 Delivery O2 Flow Rate FiO2 08/05/16 22:21 16 Room Air 08/05/16 22:04 98.0 76 130/61 96 Orders Ankle, Complete ([id number]) (08/05/16 23:16) Ice/Cold Pack (08/05/16 23:16) Splint Or Brace Apply/Monitor (08/05/16 23:28) Crutches (08/05/16 23:28) Acetamin-Hydrocod 325-5 Mg ([place] 5-325 (08/05/16 23:30) Ice/Cold Pack (08/05/16 23:28) MDM Medical Decision Making Medical Screen Exam Complete: Yes Emergency Medical Condition: Yes Medical Record Reviewed: Yes Interpretation(s) Right ankle: Patient has a nondisplaced distal fibular fracture. Differential Diagnosis MDM: High Differential diagnoses: Fracture, sprain, strain, dislocation, contusion, neurovascular injury Narrative Course Patient's given ice pack, Lortab 10 mg by mouth. Patient is placed in a short leg splint. X-ray reveals a distal fibular fracture. Diagnosis Primary Impression: Closed fracture of right distal fibula Patient Instructions: General Instructions Departure Forms: Tests/Procedures, Work Release Special Instructions: No work 3 days. Additional Instructions: Rest. Elevation. Ice packs for the next 3 days. Splint and crutches. No weight-bearing. Medications as directed. Contacted in the morning for referral. Follow-up with an orthopedist or flame hardening machine setter in one week. Return to the ER if any problems Med/Other Pt SpecificInfo: Prescription(s) given Scripts Hydrocodone-Acetaminophen (Lortab)5-325 Mg Tab1-2 Tab PO Q6H PRN (PAIN) #30 TAB Prov:Renato Redmond MD 08/05/16 Disposition: 01 DISCHARGE HOME Condition: Stable Joss Jordan Aug 05, 2016 23:21
[2016-08-05] MEDS ORDERED: ACETAMINOPHEN/HYDROcodone 325 MG/5 MG TAB PO ONE (23:30)
[2016-08-05] MEDS ORDERED: HYDR-3533 PO (23:30)
--- NOTE | 2016-08-05 23:46 | RADRPT ---
EXAM DATE/TIME: 08/05/2016 23:16 [facility] COMPARISON: No previous studies available for comparison. INDICATIONS : Fall. Right ankle pain. MEDICAL HISTORY : None. SURGICAL HISTORY : None. ENCOUNTER: Initial ACUITY: 1 day PAIN SCORE: 9/10 LOCATION: Right lateral FINDINGS: There is a minimally displaced oblique fracture through the distal fibular shaft just above the ankle joint with overlying soft tissue swelling. No dislocation. No other fractures identified. Prominent bone spur posterior calcaneus. CONCLUSION: 1. Minimally displaced oblique fracture distal fibular shaft. No dislocation. Joss Maciel MD on August 05, 2016 at 23:44 Board Certified Radiologist. This report was verified electronically.
== END 2016-08-06 00:10 | disposition home or self-care (01) ==
LOC: NEPB 21:59
DX: S82.431A Displaced oblique fracture of shaft of right fibula, initial encounter for closed fracture (principal); I10 Essential (primary) hypertension; W01.0XXA Fall on same level from slipping, tripping and stumbling without subsequent striking against object, initial encounter; Y92.009 Unspecified place in unspecified non-institutional (private) residence as the place of occurrence of the external cause; F10.10 Alcohol abuse, uncomplicated
CPT/HCPCS: 29515; 73610; 99283; E0113

== ENCOUNTER 2016-08-11 13:30 | Emergency (ER) | payer OTHER ==
[~2016-08-11] VITALS: Ht 185.4 cm; Wt 155.0 kg
[~2016-08-11 13:30] MED LIST changes: +HYDR-3533 PO
[2016-08-11 13:34] VITALS: BP 143/104; PULSE 110; RESP 16; TEMP 98; O2SAT 97
[2016-08-11] MEDS ORDERED: ACETAMINOPHEN/HYDROcodone 325 MG/5 MG TAB PO ONE (15:00)
--- NOTE | 2016-08-11 15:02 | PD ---
HPI Chief Complaint: Pain: Acute or Chronic Time Seen by Provider: 14:48 Travel History International Travel<30 days: No Contact w/Intl Traveler<30days: No Traveled to known affect area: No History of Present Illness HPI 46-year-old male presents for reevaluation of right leg pain. The patient was seen on August 05 after a mechanical trip and fall. He was found to have a distal fibular fracture on the right leg. A splint was placed. He was given prescription Lortab for pain control. He has had worsening pain over the past few days. The pain now radiates to the proximal aspect of the right lower leg. The pain is worse with movement. He has been having to ambulate at home although he has been trying use crutches and a walker. He has been weightbearing some on the right leg. He has been icing and elevating the leg as instructed. He ran out of his pain medication recently. He has an appointment with orthopedist Dr. Schmidt in 2 days. No other complaints. PFSH Past Medical History Hx Anticoagulant Therapy: No Arthritis: Yes (LEFT FOOT) Asthma: No Autoimmune Disease: No Blood Disorders: No Anxiety: No Depression: No Heart Rhythm Problems: No Cancer: No Cardiovascular Problems: Yes High Cholesterol: No Chemotherapy: No Chest Pain: No Congestive Heart Failure: No COPD: No Cerebrovascular Accident: No Diabetes: No Diminished Hearing: No Endocrine: Yes Gastrointestinal Disorders: Yes GERD: No Genitourinary: Yes ("BORN WITH ONE KIDNEY, HAVE FSGS") Hiatal Hernia: No Hypertension: Yes Immune Disorder: No Implanted Vascular Access Dvce: No Kidney Stones: No Musculoskeletal: Yes Neurologic: Yes (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) Psychiatric: No Reproductive: No Respiratory: No Immunizations Current: Yes Migraines: No Pancreatitis: Yes Radiation Therapy: No Renal Failure: Yes (CKD, has one RIGHT SIDED kidney "FSGS") Seizures: No Sickle Cell Disease: No Sleep Apnea: No Thyroid Disease: No Ulcer: No Tetanus Vaccination: < 5 Years Influenza Vaccination: No PNEUMOCCOCAL Vaccine (Year): 2 Past Surgical History Abdominal Surgery: Yes AICD: No Appendectomy: Yes Arteriovenous Shunt: No Body Medical Devices: PIN IN HIP Cardiac Surgery: No Ear Surgery: No Endocrine Surgery: No Eye Surgery: No Genitourinary Surgery: No Gynecologic Surgery: No Hysterectomy: No Insulin Pump: No Joint Replacement: Yes Oral Surgery: Yes ("SALIVA GLAND REMOVED") Pacemaker: No Thoracic Surgery: No Other Surgery: Yes Social History Alcohol Use: Yes (750 ML VODKA DAILY) Tobacco Use: Yes (QUIT: 04/2015) Substance Use: No Allergies-Medications (Allergen,Severity, Reaction): Coded Allergies: No Known Allergies (Verified , 08/11/16) Reported Meds & Prescriptions Reported Meds & Active Scripts Active Lortab (Hydrocodone-Acetaminophen) 5-325 Mg Tab 1 Tab PO Q6H PRN Reported Lisinopril 20 Mg Tab 20 Mg PO DAILY Review of Systems Musculoskeletal: Positive: Limited ROM, Pain Skin: Positive Other (positive for soft tissue swelling) Physical Exam Narrative GENERAL: Well developed well-nourished male in no acute distress schmidt splint in place right lower extremity. The splint was removed. SKIN: Warm and dry. he has bruising around the medial lateral aspect of the right ankle as well as the anterior mid aspect of the right lower leg overlying the arnold. CARDIOVASCULAR: Regular rate and rhythm. No murmur appreciated. RESPIRATORY: No accessory muscle use. Clear to auscultation. Breath sounds equal bilaterally. Extremities: Skin as noted above. Tender to palpation to the medial and lateral aspect of the right ankle. The compartments of the right calf are soft. There is no skin breakdown. 2+ dorsalis pedis pulse. Distal sensation is preserved. Data Data Last Documented VS Vital Signs Date Time Temp Pulse Resp B/P Pulse Ox O2 Delivery O2 Flow Rate FiO2 08/11/16 13:34 98.0 110 16 143/104 97 Orders Tibia/Fibula (Ap/Lat) (08/11/16 ) Acetamin-Hydrocod 325-5 Mg ([place] 5-325 (08/11/16 15:00) Ice/Cold Pack (08/11/16 14:58) MDM Medical Decision Making Medical Screen Exam Complete: Yes Emergency Medical Condition: Yes Medical Record Reviewed: Yes Differential Diagnosis Medication refill, skin maceration, compartment syndrome Narrative Course 46-year-old male presents with worsening pain associated with this distal right fibular fracture. He has been having ambulate on the leg as he has had difficulty completely keeping weight off of the leg despite the use of crutches and a walker. The current splint was removed and there is no evidence of compartment syndrome. Plan is for re-x-ray of the right tibia fibula. Lortab has been provided. X-ray imaging reveals a stable distal fibular fracture. The patient is stable for discharge with a new schmidt splint. Diagnosis Primary Impression: Closed fracture of right distal fibula Qualified Code: S82.831D - Closed fracture of distal end of right fibula with routine healing, unspecified fracture morphology, subsequent encounter Referrals: Brayden Schmidt MD Additional Instructions: Follow-up as scheduled with Dr. Schmidt in 2 days. Elevate as much as possible. Ice pack several times a day to the affected area. Do not remove the splint. Decreased ambulation. Return for any emergent medical conditions. Med/Other Pt SpecificInfo: Prescription(s) given Scripts Hydrocodone-Acetaminophen (Lortab)5-325 Mg Tab1 Tab PO Q6H PRN (PAIN) #20 TAB Ref 0 Prov:Hector Ritchie MD 08/11/16 Disposition: 01 DISCHARGE HOME Condition: Stable Leon Ward Aug 11, 2016 15:02
[2016-08-11] MEDS ORDERED: HYDR-3533 PO (15:13)
--- NOTE | 2016-08-11 15:42 | RADHPO ---
EXAM DATE/TIME: 08/11/2016 15:04 [facility] COMPARISON: No previous studies available for comparison. INDICATIONS: Patient complains of pain. Patient fell one week ago and has not been seen by the orthopedic doctor. MEDICAL HISTORY: None. SURGICAL HISTORY: None. ENCOUNTER: Subsequent ACUITY: 1 week PAIN SCORE: 8/10 LOCATION: Right distal Tibia FINDINGS: There is a fracture of the distal fibula extending above the tibial plafond. The tibia is intact. CONCLUSION: 1. Fracture of the distal fibula. 2. Tibia is intact. Delano Bowie MD FACR on August 11, 2016 at 15:38 Board Certified Radiologist. This report was verified electronically.
== END 2016-08-11 16:33 | disposition home or self-care (01) ==
LOC: PHEFT 13:30
DX: S82.831A Other fracture of upper and lower end of right fibula, initial encounter for closed fracture (principal); W01.0XXA Fall on same level from slipping, tripping and stumbling without subsequent striking against object, initial encounter
CPT/HCPCS: 29515; 73590; 99283; E0113

== ENCOUNTER 2017-10-02 08:40 | Emergency (ER) | payer OTHER ==
[2017-10-02 08:42] VITALS: BP 186/90; PULSE 116; RESP 20; TEMP 98.5; O2SAT 98
[2017-10-02] MEDS ORDERED: SODIUM CHLOR 0.9% 1000 ML INJ 1,000 ML IV ONE (09:15)
[2017-10-02] MEDS ORDERED: ONDANSETRON HCL 4 MG/2 ML VIAL IV PUSH ONE (09:15)
[2017-10-02] MEDS ORDERED: THIAMINE INJ 100 MG in SODIUM CHLORIDE 0.9% INJ 100 ML IV ONE (09:15)
[2017-10-02] MEDS ORDERED: LORazepam 2 MG/ML VIAL IV PUSH ONE (09:15)
--- NOTE | 2017-10-02 09:18 | PD ---
HPI Chief Complaint: GI Complaint Time Seen by Provider: 09:01 Travel History International Travel<30 days: No Contact w/Intl Traveler<30days: No Traveled to known affect area: No History of Present Illness HPI 47-year-old male complains of right flank pain, nausea vomiting, feeling shaky. Patient has history of alcohol consumption daily. Patient has history of DVT in the past when he stopped drinking. Patient started having right flank pain intermittently for the past 6 months. Patient has been seen by personal physician for that. Ultrasound of kidney was negative recently. Patient has history chronic kidney disease and has only one kidney on the right side. Patient awaiting CT scan abdomen pelvis for the pain on the right side. Patient states that the right flank is worse. Past 3 days. Patient states that the pain is cramping pain and sharp pain started at the flank area with radiation to the right side abdomen. Patient denies any fever chills. Patient denies any dysuria frequency. Patient denies any history of kidney stone. Patient states that he has persistent nausea vomiting despite taking Zofran. Patient also has been taking Prilosec [id number]. Patient has history of hypertension and was on lisinopril in the past. Patient was advised to stop taking lisinopril secondary to kidney disease. On a scale of 1-10 the pain is a 9. PFSH Past Medical History Hx Anticoagulant Therapy: No Arthritis: Yes (LEFT FOOT) Asthma: No Autoimmune Disease: No Blood Disorders: No Anxiety: No Depression: No Heart Rhythm Problems: No Cancer: No Cardiovascular Problems: Yes High Cholesterol: No Chemotherapy: No Chest Pain: No Congestive Heart Failure: No COPD: No Cerebrovascular Accident: No Diabetes: Yes Diminished Hearing: No Endocrine: Yes Gastrointestinal Disorders: Yes GERD: No Genitourinary: Yes ("BORN WITH ONE KIDNEY, HAVE FSGS") Hiatal Hernia: No Hypertension: Yes Immune Disorder: No Implanted Vascular Access Dvce: No Kidney Stones: No Musculoskeletal: Yes Neurologic: Yes (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) Psychiatric: No Reproductive: No Respiratory: No Immunizations Current: Yes Migraines: No Pancreatitis: Yes Radiation Therapy: No Renal Failure: Yes (CKD, has one RIGHT SIDED kidney "FSGS") Seizures: No Sickle Cell Disease: No Sleep Apnea: No Thyroid Disease: No Ulcer: No PNEUMOCCOCAL Vaccine (Year): 2 Past Surgical History Abdominal Surgery: Yes AICD: No Appendectomy: Yes Arteriovenous Shunt: No Body Medical Devices: PIN IN HIP Cardiac Surgery: No Ear Surgery: No Endocrine Surgery: No Eye Surgery: No Genitourinary Surgery: No Gynecologic Surgery: No Hysterectomy: No Insulin Pump: No Joint Replacement: Yes Oral Surgery: Yes ("SALIVA GLAND REMOVED") Pacemaker: No Thoracic Surgery: No Other Surgery: Yes Social History Alcohol Use: Yes (750 ML VODKA DAILY) Tobacco Use: Yes (QUIT: 04/2015) Substance Use: No Allergies-Medications (Allergen,Severity, Reaction): Coded Allergies: No Known Allergies (Verified Adverse Reaction, Unknown, 10/02/17) Reported Meds & Prescriptions Reported Meds & Active Scripts Active Reported Lisinopril 20 Mg Tab 20 Mg PO DAILY Review of Systems General / Constitutional: No: Fever Eyes: No: Visual changes HENT: No: Headaches Cardiovascular: No: Chest Pain or Discomfort Respiratory: No: Shortness of Breath Gastrointestinal: Positive: Nausea, Vomiting, Abdominal Pain Genitourinary: No: Dysuria Musculoskeletal: No: Pain Skin: No Rash Neurologic: No: Weakness Psychiatric: No: Depression Endocrine: No: Polydipsia Hematologic/Lymphatic: No: Easy Bruising Physical Exam Narrative GENERAL: Well-nourished, well-developed patient. SKIN: Focused skin assessment warm/dry. HEAD: Normocephalic. EYES: No scleral icterus. No injection or drainage. NECK: Supple, trachea midline. No JVD or lymphadenopathy. CARDIOVASCULAR: Mild tachycardia rate and rhythm without murmurs, gallops, or rubs. RESPIRATORY: Breath sounds equal bilaterally. No accessory muscle use. GASTROINTESTINAL: Abdomen soft, nondistended. Patient has mild tenderness on palpation right upper quadrant of the abdomen. No rebound tenderness. No mass. MUSCULOSKELETAL: No cyanosis, or edema. BACK: Nontender without obvious deformity. Positive right CVA tenderness. Neurologic exam normal. Data Data Last Documented VS Vital Signs Date Time Temp Pulse Resp B/P (MAP) Pulse Ox O2 Delivery O2 Flow Rate FiO2 10/02/17 10:06 79 20 174/77 (109) 95 Room Air 10/02/17 08:42 98.5 Orders Orders Complete Blood Count With Diff (10/02/17 09:10) Comprehensive Metabolic Panel (10/02/17 09:10) Lipase (10/02/17 09:10) Urinalysis - C+S If Indicated (10/02/17 09:10) Ct Abd/Pel W/O Iv Contrast (10/02/17 09:10) Iv Access Insert/Monitor (10/02/17 09:10) Ecg Monitoring (10/02/17 09:10) Oximetry (10/02/17 09:10) Sodium Chlor 0.9% 1000 Ml Inj (Ns 1000 M (10/02/17 09:15) Lorazepam Inj (Ativan Inj) (10/02/17 09:15) Thiamine Inj (Thiamine Inj) (10/02/17 09:15) Ondansetron Inj (Zofran Inj) (10/02/17 09:15) Urine Culture (10/02/17 09:38) Labs Laboratory Tests Test 10/02/17 09:30 10/02/17 09:38 White Blood Count 4.6 TH/MM3 Red Blood Count 3.53 MIL/MM3 Hemoglobin 12.3 GM/DL Hematocrit 35.7 % Mean Corpuscular Volume 101.1 FL Mean Corpuscular Hemoglobin 35.0 PG Mean Corpuscular Hemoglobin Concent 34.6 % Red Cell Distribution Width 14.1 % Platelet Count 84 TH/MM3 Mean Platelet Volume 8.6 FL Neutrophils (%) (Auto) 75.4 % Lymphocytes (%) (Auto) 16.9 % Monocytes (%) (Auto) 6.9 % Eosinophils (%) (Auto) 0.4 % Basophils (%) (Auto) 0.4 % Neutrophils # (Auto) 3.5 TH/MM3 Lymphocytes # (Auto) 0.8 TH/MM3 Monocytes # (Auto) 0.3 TH/MM3 Eosinophils # (Auto) 0.0 TH/MM3 Basophils # (Auto) 0.0 TH/MM3 CBC Comment AUTO DIFF Differential Comment AUTO DIFF CONFIRMED Platelet Estimate LOW Platelet Morphology Comment NORMAL Blood Urea Nitrogen 6 MG/DL Creatinine 1.50 MG/DL Random Glucose 201 MG/DL Total Protein 7.9 GM/DL Albumin 3.2 GM/DL Calcium Level 8.4 MG/DL Alkaline Phosphatase 128 U/L Aspartate Amino Transf (AST/SGOT) 104 U/L Alanine Aminotransferase (ALT/SGPT) 53 U/L Total Bilirubin 3.2 MG/DL Sodium Level 139 MEQ/L Potassium Level 3.6 MEQ/L Chloride Level 102 MEQ/L Carbon Dioxide Level 24.3 MEQ/L Anion Gap 13 MEQ/L Estimat Glomerular Filtration Rate 50 ML/MIN Lipase 323 U/L Urine Collection Type CLEAN CATCH Urine Color ORANGE Urine Turbidity CLEAR Urine pH 6.0 Urine Specific [place] 1.025 Urine Protein 100 mg/dL Urine Glucose (UA) NEG mg/dL Urine Ketones 40 mg/dL Urine Occult Blood NEG Urine Nitrite POS Urine Bilirubin SMALL Urine Urobilinogen GREATER/EQUAL 8.0 MG/DL Urine Leukocyte Esterase NEG Urine RBC 10-14 /hpf Urine WBC 0-2 /hpf Urine Squamous Epithelial Cells 6-8 /hpf Urine Renal Epithelial Cells 0-5 /hpf Urine Hyaline Casts 3-5 /lpf Microscopic Urinalysis Comment CULTURE INDICATED Urine Collection Time 09:38 [facility] Medical Decision Making Medical Screen Exam Complete: Yes Emergency Medical Condition: Yes Interpretation(s) Last Impressions Abdomen/Pelvis CT 10/02/17 0910 Signed Impressions: Service Date/Time: Monday, October 02, 2017 09:40 - CONCLUSION: Congenital absence of the left kidney. The right kidney has no stone or evidence of obstruction. No etiology for right flank pain is identified. Fatty liver. Clinton Varela MD 10:42 AM. CBC WBC 4.6. Hemoglobin 12.3 hematocrit 35.7. MCV 101.1. Creatinine 1.50. GFR 50. Glucose 201. Calcium 8.4. Total bili 3.2. AST 104. UA positive for RBC Differential Diagnosis Differential diagnosis including musculoskeletal, nephrolithiasis, pyelonephritis, colitis, alcohol withdrawal, impending DT. Narrative Course 47-year-old male with right flank pain, right upper quadrant abdominal pain, nausea vomiting. Patient has history of alcohol abuse and is shaky with tachycardia. History of DVT in the past. Normal saline solution 1 L IV bolus. Ativan 1 mg IV. Thiamine 100 mg IV. Diagnosis Primary Impression: Gastroenteritis Additional Impression: Right flank pain Patient Instructions: General Instructions Additional Instructions: Take medication as directed. Follow-up with personal physician. Advised [facility] alcohol problem. Return if worse. Med/Other Pt SpecificInfo: Prescription(s) given Scripts Ondansetron Odt (Zofran Odt) 4 Mg Tab 4 MG SL Q6HR Y for Nausea/Vomiting, #10 TAB 0 Refills Prov: Fco Harrington MD 4/27/18 Cyclobenzaprine (Flexeril) 10 Mg Tab 10 MG PO TID for Muscle Spasm, #60 TAB 0 Refills Prov: Fco Harrington MD 10/02/17 Disposition: 01 DISCHARGE HOME Condition: Stable Fco Harrington MD Oct 02, 2017 09:18
[2017-10-02 09:35] VITALS: O2SAT 95
[2017-10-02 09:47] LABS: BLOOD, URINE NEG (NEG); GLUCOSE,URINE NEG (NEG); KETONE, URINE 40 mg/dL (NEG); NITRITE,URINE POS (NEG); URINE LEUKOCYTE ESTERASE NEG (NEG)
[2017-10-02 09:49] LABS: AUTOMATED NEUTROPHIL # 3.5 TH/MM3 (1.8-7.7); BASOPHIL % 0.4 % (0.0-2.0); EOSINOPHIL % 0.4 % (0.0-4.0); HEMATOCRIT 35.7 % (39.0-51.0); HEMOGLOBIN 12.3 GM/DL (13.0-17.0); LYMPH % 16.9 % (9.0-44.0); LYMPHOCYTE # 0.8 TH/MM3 (1.0-4.8); MEAN CELL VOLUME 101.1 FL (80.0-100.0); MEAN CORPUSCULAR HGB CONC 34.6 % (32.0-36.0); MEAN PLATELET VOLUME 8.6 FL (7.0-11.0); MONO % 6.9 % (0.0-8.0); MONOCYTE # 0.3 TH/MM3 (0-0.9); NEUT % 75.4 % (16.0-70.0); PLATELET COUNT 84 TH/MM3 (150-450); RED BLOOD COUNT 3.53 MIL/MM3 (4.50-5.90); RED CELL DISTRIBUTION WIDTH 14.1 % (11.6-17.2); WHITE BLOOD COUNT 4.6 TH/MM3 (4.0-11.0)
[2017-10-02 09:54] LABS: CHLORIDE 102 MEQ/L (98-107); SODIUM (NA) 139 MEQ/L (136-145)
[2017-10-02 09:56] LABS: CALCIUM 8.4 MG/DL (8.5-10.1)
[2017-10-02 09:57] LABS: ALBUMIN 3.2 GM/DL (3.4-5.0); BICARBONATE 24.3 MEQ/L (21.0-32.0); GLUCOSE,RANDOM 201 MG/DL (74-106)
[2017-10-02 09:59] LABS: ALT (GPT) 53 U/L (12-78)
[2017-10-02 10:00] LABS: AST (GOT) 104 U/L (15-37); GLOMERULAR FILTRATION RATE 50 ML/MIN (>89)
[2017-10-02 10:01] LABS: URINE COLOR ORANGE (YELLW/STRAW)
[2017-10-02 10:01] LABS: TOTAL BILIRUBIN ADULT 3.2 MG/DL (0.2-1.0); TOTAL PROTEIN 7.9 GM/DL (6.4-8.2)
[2017-10-02 10:02] LABS: ALKALINE PHOSPHATASE 128 U/L (45-117)
[2017-10-02 10:02] LABS: BILIRUBIN, URINE SMALL (NEG)
[2017-10-02 10:04] LABS: WBC, URINE 0-2 /hpf (0-5)
[2017-10-02 10:05] LABS: RENAL EPITHELIAL CELLS 0-5 /hpf
[2017-10-02 10:05] LABS: BLOOD UREA NITROGEN 6 MG/DL (7-18)
[2017-10-02 10:06] VITALS: BP 174/77; PULSE 79; RESP 20; O2SAT 95
--- NOTE | 2017-10-02 10:15 | RADRPT ---
EXAM DATE/TIME: 10/02/2017 09:40 [facility] COMPARISON: CT ABDOMEN & PELVIS W/O CONTRAST, July 30, 2016, 3:06. INDICATIONS : Right flank pain. Hematuria. Nausea. Evaluate for renal calculi. ORAL CONTRAST: No oral contrast ingested. RADIATION DOSE: 27.61 CTDIvol (mGy) ; Patient body habitus MEDICAL HISTORY : Pancreatitis. Diabetes mellitus type 2. Hypertension.Born with one kidney (right). SURGICAL HISTORY : Appendectomy. ENCOUNTER: Initial ACUITY: 3 days PAIN SCALE: 8/10 LOCATION: Right flank TECHNIQUE: Volumetric scanning of the abdomen and pelvis was performed. Using automated exposure control and ad justment of the mA and/or kV according to patient size, radiation dose was kept as low as reasonably achievable to obtain optimal diagnostic quality images. DICOM format image data is available electro nically for review and comparison. FINDINGS: LOWER LUNGS: The visualized lower lungs are clear. LIVER: Homogeneously lower density without lesion. There is no dilation of the biliary tree. Cholecystectom y clips SPLEEN: Normal size without lesion. PANCREAS: Within normal limits. KIDNEYS: The right kidney Normal in size and shape. There is no mass, stone, or hydronephrosis. The left kidn ey is congenitally absent. ADRENAL GLANDS: Within normal limits. VASCULAR: There is no aortic aneurysm. BOWEL/MESENTERY: The stomach, small bowel, and colon demonstrate no acute abnormality. There is no free intraperitone al air or fluid. ABDOMINAL WALL: Within normal limits. RETROPERITONEUM: There is no lymphadenopathy. BLADDER: No wall thickening or mass. REPRODUCTIVE: Within normal limits. INGUINAL: There is no lymphadenopathy or hernia. MUSCULOSKELETAL: Within normal limits for patient age. CONCLUSION: Congenital absence of the left kidney. The right kidney has no stone or evidence of obstruction. No e tiology for right flank pain is identified. Fatty liver. Clinton Varela MD on October 02, 2017 at 10:09 Board Certified Radiologist. This report was verified electronically.
[2017-10-02 10:47] VITALS: BP 161/71; PULSE 81; RESP 20; O2SAT 97
[2017-10-02] MEDS ORDERED: ZOFR4TAB3 SL (10:49)
[2017-10-02] MEDS ORDERED: CYCL10TA PO (10:49)
== END 2017-10-02 11:00 | disposition home or self-care (01) ==
LOC: PHED 08:40
DX: K52.9 Noninfective gastroenteritis and colitis, unspecified (principal); R10.9 Unspecified abdominal pain; F10.10 Alcohol abuse, uncomplicated; E11.22 Type 2 diabetes mellitus with diabetic chronic kidney disease; I12.9 Hypertensive chronic kidney disease with stage 1 through stage 4 chronic kidney disease, or unspecified chronic kidney disease; N18.9 Chronic kidney disease, unspecified; Q60.0 Renal agenesis, unilateral; Z86.718 Personal history of other venous thrombosis and embolism; Z87.891 Personal history of nicotine dependence
CPT/HCPCS: 74176; 80053; 81001; 83690; 85025; 87086; 96365; 96375; 99284; J2060; J2405; J3411; J7030